=== PATIENT | male | born 1990 | race African-American/Black ===

== ENCOUNTER 2017-10-03 20:52 | Emergency (ER) | payer MEDICAID ==
[~2017-10-03] VITALS: Ht 182.9 cm; Wt 91.0 kg
[2017-10-03 21:55] VITALS: BP 142/78
[2017-10-03] MEDS ORDERED: DIPHENHYDRAMINE 50MG CAPSULE PO ONE (23:45)
== END 2017-10-04 00:30 | disposition home or self-care (01) ==
LOC: ER 20:52
DX: J30.9 Allergic rhinitis, unspecified (principal); F17.200 Nicotine dependence, unspecified, uncomplicated; Z98.890 Other specified postprocedural states
CPT/HCPCS: 99283